=== PATIENT | male | born 1955 | race Caucasian/White ===

== ENCOUNTER 2025-08-27 10:16 | Day surgery (SDC) | payer MEDICARE, OTHER ==
[2025-08-27] MEDS: Lactated Ringers 1,000 ML IV SCH (10:36)
[2025-08-27] MEDS ORDERED: Phenylephrine 1% 10 MG/ML SDV ONE (10:45)
[2025-08-27] MEDS ORDERED: Ketamine 200 MG/20 ML MDV ONE (10:45)
[2025-08-27] MEDS ORDERED: fentaNYL 50 MCG/ML SDV ONE (10:45)
[2025-08-27] MEDS ORDERED: Propofol 200 MG/20 ML SDV ONE ×2 (10:45)
[2025-08-27] MEDS ORDERED: Flumazenil 0.1 MG/ML 5 ML MDV ONE (10:45)
[2025-08-27] MEDS ORDERED: Midazolam 1 MG/ML 2 ML SDV ONE (10:45)
[2025-08-27 12:10] VITALS: BP 109/57; PULSE 74
== END 2025-08-27 12:10 | disposition home or self-care (01) ==
LOC: CC.SDS 10:16
PROVIDERS: ATTEND Family Medicine
DX: Z12.11 Encounter for screening for malignant neoplasm of colon (principal); D12.3 Benign neoplasm of transverse colon; D12.2 Benign neoplasm of ascending colon; K63.5 Polyp of colon; K57.30 Diverticulosis of large intestine without perforation or abscess without bleeding; I10 Essential (primary) hypertension; K21.9 Gastro-esophageal reflux disease without esophagitis; R73.03 Prediabetes; E03.9 Hypothyroidism, unspecified; Z79.890 Hormone replacement therapy; Z79.899 Other long term (current) drug therapy
CPT/HCPCS: 00811; J2250; J2371; J2704; J3010; J3490; J7120